=== PATIENT | male | born 1960 | race Caucasian/White ===

== ENCOUNTER 2019-10-02 07:07 | Day surgery (SDC) | payer OTHER ==
[~2019-10-02] VITALS: Ht 182.9 cm; Wt 121.4 kg
[2019-10-02 07:56] LABS: BASOPHILS 0.3 % (0-2); EOSINOPHILS 5.6 % (0-7); HEMATOCRIT 45.1 % (42.0-54.0); HEMOGLOBIN 14.3 g/dL (13.5-17.5); IMMATURE GRANULOCYTES 0.4 % (0-5); LYMPHOCYTES 18.7 % (15-50); MCH 31.1 pg (26.0-34.0); MCHC 31.7 g/dL (31.0-37.0); MEAN PLATELET VOLUME 11.8 fL (7.4-10.4); MONOCYTES 9.1 % (2-11); NEUTROPHILS 65.9 % (40-80); PLATELET COUNT 207 10x3/uL (130-400); RDW 13.5 % (11.5-14.5); WBC 7.3 10x3/uL (4.8-10.8)
[2019-10-02 08:05] LABS: ANION GAP 9.3 mmol/L (8-16); CALCIUM 8.9 mg/dL (8.5-10.1); CARBON DIOXIDE 30.4 mmol/L (21.0-32.0); CREATININE - SERUM 1.2 mg/dL (0.6-1.3); POTASSIUM - SERUM 3.7 mmol/L (3.5-5.1)
[2019-10-02 08:28] VITALS: BP 125/83; Ht 182.9 cm; Wt 121.4 kg
[2019-10-02] MEDS ORDERED: PLAVIX75 MG PO (08:32)
[2019-10-02] MEDS ORDERED: K-DUR20 MEQ PO (08:33)
[2019-10-02] MEDS ORDERED: ASPIRIN81 MG PO (08:33)
[2019-10-02] MEDS ORDERED: NORVASC5 MG PO (08:35)
[2019-10-02] MEDS ORDERED: ISOSORBIDE MONO60 M1 PO (08:36)
[2019-10-02] MEDS ORDERED: TOPAMAX100 MG PO (08:36)
[2019-10-02] MEDS ORDERED: TOPROL XL100 MG PO (08:37)
[2019-10-02] MEDS ORDERED: CYCLOBENZAPRINE10 MG PO (08:37)
[2019-10-02] MEDS ORDERED: PEPCID AC20 MG PO (08:38)
[2019-10-02] MEDS ORDERED: PROTONIX40 MG PO (08:38)
--- NOTE | 2019-10-02 09:56 | NUR ---
0946 IV DC'D. CATHETER TIP INTACT. NO BLEEDING AT SITE. BANDAID APPLIED.
--- NOTE | 2019-10-03 07:42 | OP ---
PATIENT NAME: NEENA DE LEON MEDICAL RECORD: [id number] :58 LOCATION:[facility] ADMISSION DATE: SURGEON: ZAKIA MURILLO DO DATE OF OPERATION: 10/02/2019 SCOPE: Olympus video gastroscope. MEDICATIONS: Propofol 200 mg IV per anesthesia. ESTIMATED BLOOD LOSS: Minimal. COMPLICATIONS: None. FINDINGS: Informed consent was given. The patient was made comfortable with the above medication. After reaching an adequate level of sedation by slow IV push, the patient was placed on his left side. The endoscope was advanced under direct visualization through the mouth to the stomach. The upper esophagus appeared normal. There was evidence of a prior esophagectomy with an esophagogastric anastomosis located at approximately 28 cm. At this site, there was some mild esophagitis/carditis. Cold forceps biopsies were taken from this site to submit for histopathology. The endoscope was advanced beyond the anastomosis into the stomach where a large amount of food retention was encountered. The pylorus could not be seen and the food particles were too large to remove through the endoscope. Cold forceps biopsies were taken from the stomach and the endoscope was withdrawn from the patient. The patient did tolerate the procedure well and there were no complications. IMPRESSION: 1. Evidence of a prior esophagectomy with a gastroesophageal anastomosis located at 28 cm. There is some mild inflammation at this anastomotic line. Cold forceps biopsies were taken. 2. Clinical gastroparesis based on endoscopic findings of food retention. PLAN AND RECOMMENDATIONS: 1. Discharge home when recovery parameters are met. 2. Follow up biopsy specimen results. 3. GERD diet and reflux precautions. 4. Gastric emptying scan. 5. Continue pantoprazole 40 mg daily in the morning. 6. We will prescribe Pepcid 40 mg at bedtime. 7. We will provide a prescription for Carafate as well. 8. Follow up in GI clinic in 4-6 weeks. 9. If dysphagia continues consider ancillary studies to evaluate further. TRANSINT:[id number] Voice Confirmation ID: [id number] DOCUMENT ID: [id number] ZAKIA MURILLO DO at 0742 CC: [id number] DICTATION DATE: 10/02/19 09 DO ALL OPERATOR: 10/02/[address] [facility] 10/02/19 [place] [address]
== END 2019-10-02 09:57 | disposition home or self-care (01) ==
LOC: D.OPS 07:07
PROVIDERS: Anesthesiology; ATTEND Internal Medicine Gastroenterology
DX: C15.9 Malignant neoplasm of esophagus, unspecified (principal); K21.9 Gastro-esophageal reflux disease without esophagitis; R13.10 Dysphagia, unspecified

== ENCOUNTER → 2019-10-09 09:08 | Outpatient (CLI) | payer OTHER ==
[2019-10-02 08:28] VITALS: BMI 36.3
[~2019-10-09 09:08] MED LIST: ASPIRIN81 MG PO; CYCLOBENZAPRINE10 MG PO; ISOSORBIDE MONO60 M1 PO; K-DUR20 MEQ PO; NORVASC5 MG PO; PEPCID AC20 MG PO; PLAVIX75 MG PO; PROTONIX40 MG PO; TOPAMAX100 MG PO; TOPROL XL100 MG PO
== END | disposition home or self-care (01) ==
LOC: D.NM 09:00
PROVIDERS: ATTEND Internal Medicine Gastroenterology
DX: R93.3 Abnormal findings on diagnostic imaging of other parts of digestive tract (principal)

== ENCOUNTER → 2019-11-09 08:47 | Outpatient (CLI) | payer OTHER ==
[2019-10-02 08:28] VITALS: BMI 36.3
== END | disposition home or self-care (01) ==
LOC: D.RAD 08:47
PROVIDERS: ATTEND Internal Medicine Gastroenterology
DX: K21.9 Gastro-esophageal reflux disease without esophagitis (principal); R13.10 Dysphagia, unspecified; C15.9 Malignant neoplasm of esophagus, unspecified